=== PATIENT | female | born 1970 | race Caucasian/White ===

== ENCOUNTER 2020-07-08 09:08 | Observation (INO) ==
[2020-07-08] MEDS ORDERED: IOPAMIDOL 100 ML BOTTLE IV ONE (09:09)
--- NOTE | 2020-07-08 10:53 | Cat Scan Report ---
INDICATION: fall 2 days ago, head injury, severe you COMPARISON: None. TECHNIQUE: Axial noncontrast-enhanced images through the brain. Sagittally and coronally reformatted images. FINDINGS: Cerebral hemispheres:Patient has a history of head injury. No intra-axial hematoma. There is low density in the right occipital lobe. Appearance is consistent with nonhemorrhagic infarction. This is abnormal for age. There is no significant mass effect. This is not considered acute. This may be subacute. There is white matter abnormality which is advanced for age. Clinical correlation is recommended for history of diabetes or hypertension. There is a nonacute right frontal lacunar infarction. There is a nonacute left caudate lacunar infarction Brainstem and cerebellum:No intra-axial abnormality Extra-axial:No acute hemorrhage. No subdural or epidural hematoma. No subarachnoid hemorrhage. Basilar cisterns are normal Calvarial:No calvarial fracture. No lytic lesion Temporal bones are negative. No destructive lesions Soft tissue, orbits, sinuses:Orbits and visualized facial soft tissues and paranasal sinuses are negative IMPRESSION: 1. Right occipital infarction. This may be subacute to chronic 2. White matter abnormality consistent with small vessel ischemic change 3. Nonacute lacunar infarctions in the right frontal lobe and left caudate nucleus The exam was performed using radiation dose optimization techniques including, but not limited to, automated exposure control, adjustment of the mA and/or kV according to patient size and use of iterative reconstruction technique. Interpreted and Authenticated by: Varghese Payan 07/08/20
[2020-07-08 10:57] LABS: POC Blood Urea Nitrogen 6 mg/dl (6-20); POC CO2 23 mmol/L (22-30); POC Calcium, Ionized 1.17 mmol/L (1.16-1.32); POC Chloride 103 mmol/L (96-108); POC Creatinine 0.6 mg/dl (0.6-1.1); POC Glucose, Random 112 mg/dL (70-105); POC Potassium 3.9 mmol/L (3.3-5.1); POC Sodium 138 mmol/L (133-145)
[2020-07-08 11:30] LABS: Basophils % (Auto) 0.9 % (0.0-2.0); Eosinophils # (Auto) 0.37 K/mcL (0.00-0.70); Eosinophils % (Auto) 3.4 % (0.0-7.0); Granulocytes % (Auto) 62.3 % (38.0-78.0); Hematocrit 45.6 % (34.1-44.9); Hemoglobin 14.9 g/dL (11.2-15.7); Lymphocytes # (Auto) 2.91 K/mcL (1.50-4.80); Lymphocytes % (Auto) 26.8 % (15.5-49.0); Mean Cell Volume 88.5 fL (80.0-100.0); Mean Corpuscular HGB Conc 32.7 g/dL (31.0-36.0); Mean Platelet Volume 9.6 fL (7.4-10.4); Monocytes # (Auto) 0.72 K/mcL (0.10-0.90); Monocytes % (Auto) 6.6 % (1.0-12.0); Platelet Count 324 K/mcL (140-440); RBC 5.15 M/mcL (3.59-5.38); WBC 10.9 K/mcL (4.50-11.00)
[2020-07-08 11:47] LABS: ALT/SGPT 13 U/l (0-40); AST/SGOT 10 U/l (0-37); Albumin 3.8 gm/dL (3.2-5.2); Albumin/Globulin Ratio 1.3 (1.0-2.3); Alkaline Phosphatase 89 U/L (39-117); Bilirubin,Total 0.2 mg/dL (0.0-1.0); Blood Urea Nitrogen 7 mg/dl (6-20); Calcium 9.6 mg/dl (8.6-10.4); Carbon Dioxide 22 mmol/L (22-30); Chloride 100 mmol/L (96-108); Glomerular Filtration Rate 85; Glucose 109 mg/dL (70-105)
[2020-07-08] MEDS ORDERED: ACETAMINOPHEN 325 MG TABLET PO ONE (11:59)
[2020-07-08] MEDS ORDERED: LORazepam 1 MG TABLET PO ONE (11:59)
--- NOTE | 2020-07-08 12:06 | Magnetic Resonance Report ---
INDICATION: Stroke TECHNIQUE: Limited MRI of the brain COMPARISON: CT scan dated 07/08/2020 FINDINGS: There is restricted diffusion in the right occipital lobe. This corresponds in location to the low-density abnormality identified on CT scan. There is corresponding ADC abnormality. This is consistent with infarction which may be acute or subacute. Findings are more consistent with subacute infarction on CT scan. There is an acute lacunar infarction in the right thalamus. This measures 5 mm. There is a corresponding ADC abnormality. FLAIR images demonstrate extensive white matter abnormality consistent with small vessel ischemic disease. IMPRESSION: 1. Acute 5 mm right thalamic lacunar infarction 2. Restricted diffusion in the right occipital lobe consistent with acute or subacute infarction 3. Extensive white matter abnormality consistent with small vessel ischemic change. Interpreted and Authenticated by: Varghese Payan 07/08/20
[2020-07-08] MEDS ORDERED: LORazepam 2 MG/ML VIAL IM ONE (15:13)
[2020-07-08] MEDS ORDERED: LORazepam 2 MG/ML VIAL ONE (15:19)
--- NOTE | 2020-07-08 16:53 | Cat Scan Report ---
INDICATION: Stroke sysmptoms COMPARISON: Limited brain MRI scan dated 07/08/2020. CT scan dated 07/08/2020 TECHNIQUE: Axial images were obtained through the upper chest, neck, and head during arterial phase. MIP and CPR reformatted images. 80ml Isovue 370 injected intravenously. FINDINGS: AORTIC ARCH:Mild calcification of the aortic arch. No dissection. No aneurysmal enlargement There is calcification at the origin of the left subclavian artery and left vertebral artery, left common carotid artery, innominate artery, right subclavian artery, right vertebral artery CAROTID ARTERIES:Right: Right common carotid artery is negative. No stenosis or occlusion. Calcified and noncalcified plaque at the origin of the right internal carotid artery. There is greater than 90% diameter stenosis at the origin of the right internal carotid artery. Right internal carotid artery is patent. Right internal carotid artery is otherwise negative. No stenosis or occlusion. No fibromuscular dysplasia or dissection. Left: Left common carotid artery is negative. No stenosis or occlusion Calcified plaque at the origin of left internal carotid artery. No significant stenosis. No evidence for ulceration. Left internal carotid artery is otherwise negative. There is no stenosis or occlusion. No dissection or evidence for fibromuscular dysplasia VERTEBRAL ARTERIES:Complete occlusion of the right vertebral artery. There is reconstitution of a very small right vertebral artery at the C4 level. This vessel is patent to the right posterior inferior cerebellar artery. Left vertebral artery is a large caliber vessel and is patent throughout its length [place]:[Cavernous and supraclinoid internal carotid arteries are negative. No significant stenosis or occlusion. M1 segments of the middle cerebral arteries and A1 segments of the anterior cerebral arteries are negative. Intracranial vertebral arteries and basilar artery are negative. Posterior cerebral arteries and superior cerebellar arteries are negative] INTRACRANIAL CIRCULATION:No intracranial branch occlusion. No arteriovenous malformation or aneurysm No dural sinus occlusion UPPER CHEST:No pulmonary parenchymal mass or focal infiltrate. Superior mediastinum is negative NECK:No solid or cystic soft tissue mass. No pathologic lymphadenopathy. BRAIN:No acute intracranial hemorrhage. No focal attenuation abnormalities or pathologic contrast enhancement. IMPRESSION: 1. Calcified and noncalcified atherosclerotic plaque 2. 90% to subtotal stenosis at the origin of the right internal carotid artery 3. Calcified plaque at the origin of the left internal carotid artery. No stenosis 4. Right vertebral artery occlusion from its origin to the C4 level. Acuity is not certain The exam was performed using radiation dose optimization techniques including, but not limited to, automated exposure control, adjustment of the mA and/or kV according to patient size and use of iterative reconstruction technique. Interpreted and Authenticated by: Varghese Payan 07/08/20
--- NOTE | 2020-07-08 17:35 | Emergency Department Note ---
HPI General Chief complaint: Fall Stated complaint: FALL Time Seen by Provider: 07/08/20 10:22 Mode of arrival: ambulatory Limitations: no limitations History of Present Illness HPI Narrative: Narrative: 49-year-old female presents with vague complaints. States 2 nights ago, she got up in the morning to go the bathroom and got dizzy and fell and hit her head on an end table. States she is had a headache ever since not the main reason she is here. She also notes that she does get dizzy when she gets up and moves around. No nausea, vomiting, or diarrhea. Did not lose consciousness. Denies any neck pain. States is hard to describe she just does not feel right. She is also had a numbness sensation down the left side of her body since this occurred. States is in her face, left arm, left side, and left leg. States just the whole left side of my body has a numb feeling. No weakness. No difficulty swallowing or talking. States she does have a difficult time ambulating at times because she is dizzy but otherwise no weakne ss or difficulty walking. She is very anxious. Her boyfriend is with her and states this is somewhat normal however he feels it is a little bit worse than usual. No recent travel. No recent cough, cold, or illness. No home treatments. Boyfriend states she is been acting normally other than just complaining of this dizziness and headache Related Data Previous Rx's Medication Instructions Recorded aspirin 81 mg PO DAILY #30 tab 07/08/20 atorvastatin 80 mg PO HS #30 tab 07/08/20 clopidogrel 75 mg PO DAILY #20 tab 07/08/20 Allergies Allergy/AdvReac Type Severity Reaction Status Date / Time Penicillins Allergy Severe Rash Verified 07/08/20 09:16 cephalexin [From Keflex] Allergy Intermediate Rash Verified 07/08/20 09:16 Review of Systems ROS ROS Narrative: Narrative: All systems ED: reviewed and negative except as stated. [facility] Narrative Patient History Narrative: Narrative: Medical/Surgical/Family History All Active Problems (Updated 07/08/20 @ 21:38 by JONES Branch) Acute CVA (cerebrovascular accident) (Acute) Non-compliance (Acute) Paresthesia (Acute) CAD (coronary artery disease) (Acute) Anxiety (Acute) Obesity (Acute) Noncompliance (Acute) Hypertension (Acute) Medical History (Updated 07/08/20 @ 21:38 by JONES Branch) Aftercare following right ankle joint replacement surgery (Acute) Surgical History (Updated 07/08/20 @ 17:31 by JONES Branch) H/O knee surgery (Acute) Social History Smoking Status: Current every day smoker Alcohol Intake Frequency: a few times a week Substance Use: does not use Exam Narrative Narrative: Narrative: General Limitations: no limitations General appearance: alert, anxious and obese Head Head: normocephalic Eye Eye: Present normal appearance, PERRL and EOMI; Absent conjunctival injection ENT ENT: Present normal exam, normal oropharynx, mucous membranes moist, TM's normal bilaterally and normal external ear exam Neck Neck: Present normal inspection, full ROM and trachea midline Chest Chest: Present symmetric chest wall rise Respiratory Respiratory: Present normal lung sounds bilaterally; Absent respiratory distress, rales/crackles, wheezes, stridor and accessory muscle use Cardiovascular Cardiovascular: Present regular rate and normal heart sounds Extremities Extremities: Present normal inspection, full ROM and normal capillary refill; Absent pedal edema Neurological Neurological: Present alert, oriented X3, CN II-XII intact and other (NIH score of 0); Absent motor sensory deficit Psychiatric Psychiatric: Present other (Anxious and agitated. At times is cooperative and other times is very uncooperative.) Skin Skin: Present warm, dry, intact and normal color Course Course Course Narrative: Initial head CT showed possible subacute versus acute ischemic infarct. After discussing with radiology we determined we would go ahead and do an MRI and it was then found to be acute. NIH score of 0. Patient is high risk. She is noncompliant, obese, has untreated and unmanaged hypertension, poor diet, and no primary care for several years. I did speak with the spitalist, Dr. Chavira. He would like us to consult with the neuro stroke line. I did speak with Dr. Drew via the neuro stroke line. He suggested that there is nothing further that we can do at this time other than do a further work-up with a CT angio head and neck and echo and refer as needed. CT angio head and neck shows 90% or greater right carotid occlusion. @ 1900 Dr Chavira agrees to accept patient Vital Signs Vital signs: Vital Signs Temperature 97.2 F 07/08/20 09:11 Respiratory Rate 16 07/08/20 09:11 Blood Pressure 180/103 07/08/20 09:11 Pulse Oximetry (%) 96 07/08/20 09:11 Temperature 97.2 F 07/08/20 20:11 Pulse Rate 88 07/08/20 20:11 Respiratory Rate 20 07/08/20 20:11 Blood Pressure 166/93 07/08/20 20:11 Pulse Oximetry (%) 93 07/08/20 20:11 [facility] MDM Narrative Medical decision making narrative: Narrative: Lab Data Result diagrams: 07/08/20 10:47 07/08/20 10:47 Labs: Lab Results 07/08/20 07/08/20 07/08/20 Range/Units 10:28 10:47 10:47 WBC 10.9 (4.50-11.00) K/mcL RBC 5.15 (3.59-5.38) M/mcL Hgb 14.9 (11.2-15.7) g/dL Hct 45.6 H (34.1-44.9) % POC Hct 44.0 (36.0-48.0) % MCV 88.5 (80.0-100.0) fL MCH 28.9 (26.0-34.0) pg MCHC 32.7 (31.0-36.0) g/dL RDW 14.0 (11.5-14.5) % Plt Count 324 (140-440) K/mcL MPV 9.6 (7.4-10.4) fL Gran % 62.3 (38.0-78.0) % Lymph % (Auto) 26.8 (15.5-49.0) % [place] % (Auto) 6.6 (1.0-12.0) % Eos % (Auto) 3.4 (0.0-7.0) % Baso % (Auto) 0.9 (0.0-2.0) % Gran # 6.75 (1.80-8.00) K/mcL Lymph # (Auto) 2.91 (1.50-4.80) K/mcL [place] # (Auto) 0.72 (0.10-0.90) K/mcL Eos # (Auto) 0.37 (0.00-0.70) K/mcL Baso # (Auto) 0.10 (0.00-0.30) K/mcL POC Sodium 138 (133-145) mmol/L Sodium 138 (133-145) mmol/L POC Potassium 3.9 (3.3-5.1) mmol/L Potassium 3.5 (3.3-5.1) mmol/L POC Chloride 103 (96-108) mmol/L Chloride 100 (96-108) mmol/L Carbon Dioxide 22 (22-30) mmol/L POC Total CO2 23 (22-30) mmol/L Anion Gap 16.0 (8-16) POC BUN 6 (6-20) mg/dl BUN 7 (6-20) mg/dl Creatinine 0.8 (0.6-1.1) mg/dl POC Creatinine 0.6 (0.6-1.1) mg/dl GFR Calculation 85 Glucose 109 H (70-105) mg/dL POC Glucose 112 H (70-105) mg/dL Calcium 9.6 (8.6-10.4) mg/dl POC WB Ioniz Calcium 1.17 (1.16-1.32) mmol/L Total Bilirubin 0.2 (0.0-1.0) mg/dL AST 10 (0-37) U/l ALT 13 (0-40) U/l Alkaline Phosphatase 89 (39-117) U/L Total Protein 6.8 (5.9-8.4) gm/dL Albumin 3.8 (3.2-5.2) gm/dL Globulin 3.0 (2.2-3.7) gm/dL Albumin/Globulin Ratio 1.3 (1.0-2.3) Triglycerides 301 H (<150) mg/dl Cholesterol 218 H (<200) mg/dl LDL Cholesterol, Calc 128 H (SEE CHART) mg/dl Non-HDL Cholesterol 188 H (LDL TARGET+30) HDL Cholesterol 30 L (>40) mg/dl Discharge Plan Patient/Caregiver Discharge Instructions Pt seen by FLY FINISHER/PA only: Yes Clinical Impression: Acute CVA (cerebrovascular accident), Non-compliance, Paresthesia, CAD (coronary artery disease) Activity: increase activity as tolerated Patient Disposition: Xfer As Outpt/Obs ([facility]) Condition: Fair Discharge Date/Time: 07/08/20 20:10
[2020-07-08] MEDS ORDERED: ASPIRIN 81 MG TAB.CHEW CHEWED ONE (19:05)
[2020-07-08] MEDS ORDERED: 0.9 % SODIUM CHLORIDE 500 ML IV ONE (19:05)
[2020-07-08] MEDS ORDERED: ASPIRIN 81 MG TAB.CHEW ONE (19:12)
--- NOTE | 2020-07-08 19:23 | Internal Med History&Physical ---
HPI History of Present Illness Patient information: Note initiated : 07/08/20 at 7:14 pm Service Date, if different from initiated Date: [] Patient: Keri Reyes a 49 y/o F admitted on for FALL. Chief Complaint: [] History of present illness: Ms. Reyes is a 49 year old F Presents the ED with at the encouragement of her who was concerned for stroke. Patient states that 2 days ago she fell and attributes it to left leg numbness. She also states her left arm was numb. The numbness has gone away but at times does come back. She denies any weakness. Evaluation in the ED she was found to have a 5mm acute right lamina infarct. She was also found to have greater 90% stenosis of the right internal carotid artery. Case discussed with Dr. Lam who will see the patient in follow-up when she gets out of the hospital. She has headache but otherwise no other complaints. Review of Systems: Pertinent positives above. Denies fever/chills/nausea/vomiting/chest or abdominal pain/cough/dyspnea/diarrhea. Remaining 10 point review of system reviewed negative PFSH PFSH All Active Problems (Updated 07/08/20 @ 17:31 by JONES Branch) Anxiety (Acute) Obesity (Acute) Noncompliance (Acute) Hypertension (Acute) Medical History (Updated 07/08/20 @ 17:31 by JONES Branch) Aftercare following right ankle joint replacement surgery (Acute) Surgical History (Updated 07/08/20 @ 17:31 by JONES Branch) H/O knee surgery (Acute) Social History (Updated 07/08/20 @ 19:22 by Remi Chavira DO) smoking status: Current every day smoker alcohol intake frequency: a few times a week substance use type: does not use additional history: Past medical history: Chronic pain hypertension tobacco abuse Surgical history: Knee surgery and hysterectomy Family history: Mother had leukemia and father heart disease Social history: Smokes 1 pack cigarettes per day denies alcohol use lives at home with her MEDS/ALLERGIES Home Medications and Allergies Home Medications Medication Instructions Recorded Confirmed Type No Known Home Meds 07/08/20 07/08/20 History Allergies Allergy/AdvReac Type Severity Reaction Status Date / Time Penicillins Allergy Severe Rash Verified 08/26/20 09:16 cephalexin [From Keflex] Allergy Intermediate Rash Verified 07/08/20 09:16 EXAM Constitutional Vitals: Temp Pulse Resp BP Pulse Ox 97.2 F 74 20 166/93 94 07/08/20 09:11 07/08/20 15:41 07/08/20 10:31 07/08/20 17:25 07/08/20 17:25 Exam: General: Alert, Awake, No acute Distress Eyes/N/T: EOMI, PERRL, MMM Head/Neck: neck supple, normocephalic atraumatic CV: RRR, No murmurs, normal s1/s2 Pulm: Clear b/l, no wheezing/rhonchi/rales Abd: soft, nontender, +BS x4 Ext: no clubbing/cyanosis/edema Neuro: Alert, no focal deficits at this time - Sensations intact bilateral upper and lower and strength intact bilateral lower, moves all extremities, CN 2-12 grossly intact, no pronator drift Skin: warm/dry Psych: Emotionally labile, looking at old notes peers this is baseline DATA Data Completed and Pending Labs: Labs from last 24 hours 07/08/20 07/08/20 10:47 10:47 WBC 10.9 RBC 5.15 Hgb 14.9 Hct 45.6 H POC Hct 44.0 MCV 88.5 MCH 28.9 MCHC 32.7 RDW 14.0 Plt Count 324 MPV 9.6 Gran % 62.3 Lymph % (Auto) 26.8 [place] % (Auto) 6.6 Eos % (Auto) 3.4 Baso % (Auto) 0.9 Gran # 6.75 Lymph # (Auto) 2.91 [place] # (Auto) 0.72 Eos # (Auto) 0.37 Baso # (Auto) 0.10 POC Sodium 138 Sodium 138 POC Potassium 3.9 Potassium 3.5 POC Chloride 103 Chloride 100 Carbon Dioxide 22 POC Total CO2 23 Anion Gap 16.0 POC BUN 6 BUN 7 Creatinine 0.8 POC Creatinine 0.6 GFR Calculation 85 Glucose 109 H POC Glucose 112 H Calcium 9.6 POC WB Ioniz Calcium 1.17 Total Bilirubin 0.2 AST 10 ALT 13 Alkaline Phosphatase 89 Total Protein 6.8 Albumin 3.8 Globulin 3.0 Albumin/Globulin Ratio 1.3 A/P Narrative A/P Narrative: A: *CVA (Right Thalamic) with left leg/arm numbness resolved: -EKG nsr -CTA neck with >90% right IC *HTN: *HTD: *Chronic pain: Takes Advil *Tobacco abuse: P: -DAPT for 21 days, defer final regimen to Dr. Lam/Vascular surgery -Statin started -case discussed with Dr. Lam who will see in f/u outpt -permissive HTN 24-48hrs -echo pending - -pt/ot -Smoking cessation counseling -ppx: lovenox DNR Time Spent With Patient Time: Total time spent is greater than 50% in coordination of care (as documented) at patient's floor/unit and/or counseling patient:
[2020-07-08] MEDS ORDERED: IPRATROPIUM/ALBUTEROL 3 ML AMPUL.NEB NEB PRN (19:24)
[2020-07-08] MEDS ORDERED: ONDANSETRON 4 MG/2 ML VIAL IV PRN (19:24)
[2020-07-08] MEDS ORDERED: POLYETHYLENE GLYCOL 3350 17 GM PACKET PO PRN (19:24)
[2020-07-08] MEDS ORDERED: SENNOSIDES 1 TABLET PO PRN (19:24)
[2020-07-08] MEDS ORDERED: POTASSIUM CHLORIDE 40 MEQ in DEXTROSE 5% IN WATER 500 ML IV PRN (19:24)
[2020-07-08] MEDS ORDERED: ACETAMINOPHEN 325 MG TABLET PO PRN (19:24)
[2020-07-08] MEDS ORDERED: MAGNESIUM SULFATE 2 GM/50 ML BAG IV PRN (19:24)
[2020-07-08] MEDS ORDERED: LORazepam 2 MG/ML VIAL IV PRN (19:24)
[2020-07-08] MEDS ORDERED: POTASSIUM CHLORIDE 20 MEQ TABLET PO PRN ×2 (19:24)
[2020-07-08] MEDS ORDERED: 0.9 % SODIUM CHLORIDE 500 ML IV SCH (19:30)
[2020-07-08 19:54] LABS: HDL Cholesterol 30 mg/dl (>40); Non-HDL Cholesterol 188 (LDL TARGET+30)
[2020-07-08 20:06] LABS: LDL Cholesterol,Calculated 128 mg/dl (SEE CHART); Triglycerides 301 mg/dl (<150)
--- NOTE | 2020-07-08 20:25 | Discharge Summary ---
Discharge Provider Provider Patient information: Note initiated : 07/08/20 at 8:24 pm Service Date, if different from initiated Date: [] Patient: Keri Reyes 49 y/o F admitted on 07/08/20 for FALL. Chief Complaint: [] Date of admission: 07/08/20 20:01 Discharge date: 07/09/20 Primary care physician: Shahrzad Ferrer Consults: 07/08/20 Consult to Physician [CONS] Stat Comment: Consulting Provider: Remi Chavira Reason For Exam: Physician to Consult Discharge Meds Discharge Medications Home Medications aspirin 81 mg PO DAILY #30 tab 07/08/20 [Rx Last Taken Unknown] atorvastatin 80 mg PO HS #30 tab 07/08/20 [Rx Last Taken Unknown] clopidogrel 75 mg PO DAILY #20 tab 07/08/20 [Rx Last Taken Unknown] amlodipine [Norvasc] 2.5 mg PO QDAY #30 tab 07/09/20 [Rx Last Taken Unknown] COURSE Hospital Course Hospital course: History of present illness: Ms. Reyes is a 49 year old F Presents the ED with at the encouragement of her who was concerned for stroke. Patient states that 2 days ago she fell and attributes it to left leg numbness. She also states her left arm was numb. The numbness has gone away but at times does come back. She denies any weakness. Evaluation in the ED she was found to have a 5mm acute right lamina infarct. She was also found to have greater 90% stenosis of the right internal carotid artery. Case discussed with Dr. Lam who will see the patient in follow-up when she gets out of the hospital. She has headache but otherwise no other complaints. 07/09 No overnight events or new complaints. Stable for discharge. A: *CVA (Right Thalamic) with left leg/arm numbness resolved: -EKG nsr -CTA neck with >90% right IC *HTN: *HLD: *Chronic pain: Takes Advil *Tobacco abuse: Discharge diagnosis: Right hemispheric stroke hypertension hyperlipidemia tobacco abuse Time Spent with Patient Time attestation: Total time spent providing and/or coordinating discharge services: Time spent: Greater than 30 minutes EXAM Constitutional Vitals: Temp Pulse Resp BP Pulse Ox 97.2 F 88 20 166/93 93 07/08/20 20:11 07/08/20 20:11 07/08/20 20:11 07/08/20 20:11 07/08/20 20:11 Discharge Data Data Completed and Pending Labs on day of discharge: Labs from last 24 hours 07/08/20 07/08/20 07/08/20 10:47 10:47 10:28 WBC 10.9 RBC 5.15 Hgb 14.9 Hct 45.6 H POC Hct 44.0 MCV 88.5 MCH 28.9 MCHC 32.7 RDW 14.0 Plt Count 324 MPV 9.6 Gran % 62.3 Lymph % (Auto) 26.8 [place] % (Auto) 6.6 Eos % (Auto) 3.4 Baso % (Auto) 0.9 Gran # 6.75 Lymph # (Auto) 2.91 [place] # (Auto) 0.72 Eos # (Auto) 0.37 Baso # (Auto) 0.10 POC Sodium 138 Sodium 138 POC Potassium 3.9 Potassium 3.5 POC Chloride 103 Chloride 100 Carbon Dioxide 22 POC Total CO2 23 Anion Gap 16.0 POC BUN 6 BUN 7 Creatinine 0.8 POC Creatinine 0.6 GFR Calculation 85 Glucose 109 H POC Glucose 112 H Calcium 9.6 POC WB Ioniz Calcium 1.17 Total Bilirubin 0.2 AST 10 ALT 13 Alkaline Phosphatase 89 Total Protein 6.8 Albumin 3.8 Globulin 3.0 Albumin/Globulin Ratio 1.3 Triglycerides 301 H Cholesterol 218 H LDL Cholesterol, Calc 128 H Non-HDL Cholesterol 188 H HDL Cholesterol 30 L Discharge Plan Patient/Caregiver Discharge Instructions Activity: increase activity as tolerated Diet: Cardiac Stand Alone Forms: Left Against Medical Advice Prescriptions: New aspirin 81 mg tablet,delayed release (DR/EC) 81 mg PO DAILY Qty: 30 RF: 0 atorvastatin 40 mg Tablet 80 mg PO HS Qty: 30 RF: 0 clopidogrel 75 mg Tablet 75 mg PO DAILY Qty: 20 RF: 0 amlodipine [Norvasc] 2.5 mg tablet 2.5 mg PO QDAY Qty: 30 RF: 0 Follow Up Plan Follow up with: Varghese Lam MD [Physician] - Shahrzad Ferrer ARNP [Primary Care Provider] - Patient Disposition: Home, Self-Care Prognosis: Fair Rehab Potential: Fair Overall status at discharge: patient is progressing back to baseline Discharge Orders: Discharge Order (Routine); Ordered 07/09/20 Ordered By: Remi Chavira
[2020-07-08] MEDS ORDERED: ATORVASTATIN 40 MG TABLET PO SCH (21:00)
[2020-07-08] MEDS: DOCUSATE SODIUM 100 MG CAPSULE PO SCH (21:04)
[2020-07-08] MEDS: NICOTINE 21 MG PATCH TOPICAL SCH (21:04)
[2020-07-08] MEDS: 0.9 % SODIUM CHLORIDE 10 ML SYRINGE IV SCH (23:03)
[2020-07-09] MEDS: 0.9 % SODIUM CHLORIDE 10 ML SYRINGE IV SCH (06:08)
[2020-07-09] MEDS: DOCUSATE SODIUM 100 MG CAPSULE PO SCH (08:22)
[2020-07-09] MEDS ORDERED: ASPIRIN 81 MG TAB.CHEW PO SCH (09:00)
[2020-07-09] MEDS ORDERED: ASPIRIN 325 MG ENTERIC COATED TABLET PO SCH (09:00)
[2020-07-09] MEDS ORDERED: CLOPIDOGREL 75 MG TABLET PO SCH (09:00)
[2020-07-09] MEDS ORDERED: ENOXAPARIN 40 MG/0.4 ML SYRINGE SQ SCH (09:00)
[2020-07-09] MEDS: NICOTINE 21 MG PATCH TOPICAL SCH (09:51)
--- NOTE | 2020-07-09 12:56 | General Surgery Consult Note ---
HPI Data of Consult Consult date: 07/09/20 Requesting physician: Remi Chavira Primary Care Provider: Shahrzad Ferrer Family Provider: I saw this patient in Room 118 along with Zenaida AMANDA, In Patient wound care nurse. Her was present in room during interview, I was consulted for evaluation of chronic wound of RIGHT thumb nail. Reportedly this started after a cardboard splinter had lodged under nail . I reviewed details of her PMH and events pertaining to her current admission to [facility] . Recovering from acute CVA WITHOUT any gross residual sequelae. She is RIGHT handed. She smokes over a pack of cigarettes a day. Consult Narrative cc:: CC: Remi Chavira [facility] PFSH All Active Problems Acute CVA (cerebrovascular accident) (Acute) Non-compliance (Acute) Paresthesia (Acute) CAD (coronary artery disease) (Acute) Anxiety (Acute) Obesity (Acute) Noncompliance (Acute) Hypertension (Acute) Medical History Aftercare following right ankle joint replacement surgery (Acute) Surgical History H/O knee surgery (Acute) Social History smoking status: Current every day smoker alcohol intake frequency: a few times a week substance use type: does not use additional history: Past medical history: Chronic pain hypertension tobacco abuse Surgical history: Knee surgery and hysterectomy Family history: Mother had leukemia and father heart disease Social history: Smokes 1 pack cigarettes per day denies alcohol use lives at home with her MEDS/ALLERGIES Home Medications and Allergies Home Medications Medication Instructions Recorded Confirmed Type aspirin 81 mg PO DAILY #30 tab 07/08/20 Rx atorvastatin 80 mg PO HS #30 tab 07/08/20 Rx clopidogrel 75 mg PO DAILY #20 tab 07/08/20 Rx amlodipine [Norvasc] 2.5 mg PO QDAY #30 tab 07/09/20 Rx Allergies Allergy/AdvReac Type Severity Reaction Status Date / Time cephalexin [From Keflex] Allergy Mild Rash Verified 07/09/20 11:06 Penicillins Allergy Mild Rash Verified 07/09/20 11:06 diazepam [From Valium] AdvReac Verified 07/08/20 23:47 meperidine [From Demerol] AdvReac Verified 07/08/20 23:47 morphine AdvReac Verified 07/08/20 23:47 Physical Examination Vital Signs Vital signs: Temp Pulse Resp BP Pulse Ox 97.5 F 89 20 150/81 97 07/09/20 11:04 07/09/20 11:04 07/09/20 11:04 07/09/20 11:04 07/09/20 11:04 General physical appearance General physical exam: well developed, well nourished, no distress and no pain Eyes Eye exam: PERRL and normal ocular movement ENT ENT exam: normal pinna, normal nares and normal mucosa Head Head exam IM: Present atraumatic and normal inspection Neck Neck exam: no masses, trachea midline and no lymphadenopathy Cardiovascular Cardiovascular exam IM: Present normal rate and rhythm Respiratory Respiratory exam: normal expansion and clear to percussion Neurologic Neurologic: Present normal coordination, normal sensation and other (Recovered from acute Right Thalamic infarct, without any obvious residual sequelae. ) Musculoskeletal Musculoskeletal: Present other (RIGHT thumb dystrophic / diseased fungal fingernail. NO signs of acute infection or inflammation.) Psychiatric Psychiatric: Present oriented to time, oriented to person, oriented to place, speech is normal and memory intact Results Labs Result diagrams: 07/08/20 10:47 07/08/20 10:47 Labs: Abnormal lab results 07/08/20 Range/Units 10:28 Triglycerides 301 H (<150) mg/dl Cholesterol 218 H (<200) mg/dl LDL Cholesterol, Calc 128 H (SEE CHART) mg/dl Non-HDL Cholesterol 188 H (LDL TARGET+30) HDL Cholesterol 30 L (>40) mg/dl Diabetes panel 07/08/20 Range/Units 10:28 Triglycerides 301 H (<150) mg/dl HDL Cholesterol 30 L (>40) mg/dl All other labs normal. A/P Narrative A/P Narrative: Assessment: Acute thalamic infarct RIGHT sided . 90% stenosis RIGHT ICA. Awaits evaluation and treatment as outpatient. 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 MAY apply band aid as appropriate. F/U wound care clinic after her discharge. Time Spent With Patient Time: Total time spent is greater than 50% in coordination of care (as documented) at patient's floor/unit and/or counseling patient: Total time spent with greater than 50% in coordination of care (as documented) at patient's floor/unit and/or counseling patient:: less than 15 minutes
== END 2020-07-09 11:20 | disposition home or self-care (01) ==
LOC: ICU 09:08 → ED 09:08 → ICU 20:10
PROVIDERS: ADMIT Internal Medicine; ATTEND Internal Medicine